=== PATIENT | male | born 1955 | race Caucasian/White ===

== ENCOUNTER 2022-10-18 08:49 | Outpatient (CLI) | payer OTHER, SELFPAY ==
--- NOTE | ~2022-10-18 | CT_ITS ---
EXAMINATION: CT abdomen pelvis w con INDICATION: Elevated PSA TECHNIQUE: Computed tomographic images of the abdomen and pelvis were obtained after the administrati on of 100 cc of Omnipaque 350 intravenous contrast. The dose-length product (DLP) was 1649.14 mGy-cm. Automated exposure control and iterative reconstruction technique were employed. COMPARISON: None available FINDINGS: Minimal dependent atelectasis is present in the lung bases. The heart size is normal. There is a 9 mm cyst of the liver. A 1.4 cm hypoattenuating area of the spleen likely represents a lymphan gioma or cyst. The pancreas, gallbladder, and adrenal glands are normal. There are peripelvic cysts o f the kidneys. Hypoattenuating lesions in the kidneys, measuring up to 9 mm on the right, are too sma ll to characterize but likely represent cysts. No pathologically enlarged abdominal or pelvic lymph n odes are identified. There is a right common femoral chain lymph node measuring 10 mm in short axis. No free intraperitoneal gas or evidence of bowel obstruction. The appendix is normal. There are bilat eral inguinal hernias containing fat, left greater than right. There is an 8 mm sclerotic lesion of t he right ilium (image 153). There is moderate lumbar spondylosis. There is a tiny umbilical hernia co ntaining fat. There is mild wall thickening of the urinary bladder. IMPRESSION: 1. Borderline size of a right femoral chain lymph node. 2. 8 mm sclerotic lesion of the right ilium, bone alignment versus metastasis. Bone scan pending. Reviewed, dictated and finalized at location L.
--- NOTE | ~2022-10-18 | NM_ITS ---
EXAMINATION: NM bone scan whole body DATE: 10/18/2022 13:17 INDICATION: Abnormal PSA. TECHNIQUE: 19.3 mCi Tc-99m HDP was administered intravenously. Delayed whole-body scintigrams were o btained. COMPARISON: CT abdomen and pelvis 10/18/2022 FINDINGS: There is joint-centered increased activity at the sternoclavicular joints, acromioclavicula r joints, wrists, hands, feet, knees, right hip, and spine, likely osteoarthritis. IMPRESSION: 1. No evidence of metastatic disease. Reviewed, dictated and finalized at location A.
[2022-10-18 09:19] LABS: Estimated Glomerular Filt Rate > 60
== END 2022-10-18 08:50 | disposition home or self-care (01) ==
PROVIDERS: PCP Internal Medicine; Visit Provider Urology
DX: R97.20 Elevated prostate specific antigen [PSA] (principal); M89.9 Disorder of bone, unspecified
CPT/HCPCS: 74177; 78306; A9503; Q9967

== ENCOUNTER 2023-05-18 13:23 | Outpatient (CLI) | payer OTHER, SELFPAY ==
--- NOTE | ~2023-05-18 | PE_ITS ---
EXAMINATION: PET_PETPSMAST_PT DATE: 05/18/2023 16:50 INDICATION: Prostate cancer. TECHNIQUE: 7.371 mCi of piflufolastat F-18 was administered intravenously. Low dose computed tomograp hy (CT) images were acquired from the base of the brain to the proximal thighs for attenuation correc tion and anatomic localization. Automated exposure control was employed. Dose-length product (DLP) wa s 1242 mGy-cm. Positron emission tomography (PET) images were acquired in the same distribution. COMPARISON: Bone scan 10/18/2022, CT abdomen and pelvis 10/18/2022 FINDINGS: Head/neck: There are no pathologically enlarged lymph nodes. Chest: The lungs demonstrate mild atelectasis. Calcified left hilar lymph nodes are consistent with o ld granulomatous disease. No pleural effusion. The heart size is normal. No pericardial effusion. The re is bilateral gynecomastia. Abdomen/pelvis/proximal thighs: The liver, gallbladder, spleen, pancreas, and adrenal glands are norm al. There are cysts in the kidneys measuring up to 5.7 cm on the left. There is a left inguinal herni a containing fat. The prostate is mildly enlarged. There is increased activity in the prostate with m aximum SUV of 5.2 on the left and 4.4 on the right. There are no dilated loops of bowel. The appendix is normal. There are stable borderline enlarged bilateral external iliac nodes without increased act ivity, likely reactive. There is no free intraperitoneal fluid. There is a benign bone island in left ilium. There is a 10 mm sclerotic lesion in right ilium without increased activity, stable from 10/18, likely benign. IMPRESSION: 1. Mildly enlarged prostate with increased activity, consistent with primary malignancy. No evidence of metastatic disease. Reviewed, dictated and finalized at location A. IMPRESSION: 1. Mildly enlarged prostate with increased activity, consistent with primary ma lignancy. No evidence of metastatic disease.
== END 2023-05-18 13:24 | disposition home or self-care (01) ==
PROVIDERS: Visit Provider Urology
DX: C61 Malignant neoplasm of prostate (principal); N40.0 Benign prostatic hyperplasia without lower urinary tract symptoms
CPT/HCPCS: 78815; A9595